=== PATIENT | male | born 1950 | race Caucasian/White ===

== ENCOUNTER 2017-04-05 12:39 | Emergency (ER) | payer OTHER ==
[2017-04-05 12:47] VITALS: BP 131/83; PULSE 74; RESP 18; TEMP 98.1; O2SAT 95
[2017-04-05 13:46] LABS: % IMMATURE GRANULYOCYTES 0.2 % (0.0-1.1); ABSOLUTE IMMATURE GRANULOCYTES 0.01 10^3/uL (0.00-0.10); ADD DIFF? NO; ADD MORPH? NO; ADD SCAN? NO; ATYPICAL LYMPHOCYTE FLAG 10 (0-99); FRAGMENT RBC FLAG 0 (0-99); HEMATOCRIT 44.3 % (40.0-51.0); HEMOGLOBIN 16.1 g/dL (13.7-17.5); LEFT SHIFT FLG 0 (0-99); LIPEMIA HEMOLYSIS FLAG 90 (0-99); MEAN CELL HEMOGLOBIN 34.8 pg (27.9-34.1); MEAN CELL HEMOGLOBIN CONCENTR. 36.3 g/dL (32.4-36.7); MEAN CELL VOLUME 95.9 fL (81.5-99.8); MEAN PLATELET VOLUME 10.6 fL (8.7-11.7); PLATELET CLUMPS FLAG 0 (0-99); PLATELET COUNT 210 10^3/uL (150-400); RED BLOOD CELL COUNT 4.62 10^6/uL (4.40-6.38); RED CELL DISTRIBUTION WIDTH 12.3 % (11.5-15.2)
[2017-04-05 13:59] LABS: ANION GAP 14 mEq/L (8-16); CALCIUM 9.4 mg/dL (8.5-10.4); CARBON DIOXIDE 24 mEq/l (22-31); CHLORIDE 103 mEq/L (97-110); CREATININE 0.8 mg/dL (0.7-1.3); GLOMERULAR FILTRATION RATE > 60; GLUCOSE 99 mg/dL (70-100); POTASSIUM 4.1 mEq/L (3.5-5.2); SODIUM 141 mEq/L (134-144)
--- NOTE | 2017-04-05 14:16 | EDPHY ---
HPI/HX/ROS/PE/MDM Narrative: CHIEF COMPLAINT: Rectal bleeding post colonoscopy HPI: This patient is an anticoagulated (Plavix) 66 year old male arriving with his complaining of two episodes of rectal bleeding following a colonoscopy and polyp removal this morning with Dr. Del Angel. He has routine colonoscopies with polyp removal every three years. His post-procedural instructions recommended he present to the emergency department for any bleeding greater than one teaspoon, and he has noted two separate episodes with quarter-sized blood clots in the toilet which he estimated as greater than one tablespoon of blood. He denies abdominal pain, vomiting, fever, chest pain, difficulty breathing, or other associated symptoms. REVIEW OF SYSTEMS: Aside from elements discussed in the HPI, a comprehensive 10-point review of systems was reviewed and is negative. PMH: Stent placement (Plavix, Aspirin). Hyperlipidemia. Orthopedic surgeries. SOCIAL HISTORY: at bedside. Retired. Lives in [place]. PHYSICAL EXAM: General:Patient is alert, in no acute distress. ENT:Eyes are normal to inspection. ENT inspection normal. Neck: Normal inspection. Full range of motion. Respiratory:No respiratory distress. Breath sounds normal bilaterally. Cardiovascular: Regular rate and rhythm. Strong peripheral pulses. Normal cap refill. Abdomen:The abdomen is nontender to palpation. There are no peritoneal signs. There are normal bowel sounds. Back: Normal to inspection. No tenderness to palpation. Skin: Normal color. No rash. Warm and dry. Extremities: Normal appearance. Full range of motion. Neuro: Oriented x3. Normal motor function. Normal sensory function. ED Course: 66 year old male presents following two episodes of quarter-sized blood clots per rectum following colonoscopy this morning by Dr. Del Angel, cad developer. He is well-appearing and has no complaints otherwise. Exam is unremarkable, no abdominal tenderness. Plan for labs including CBC, BMP. Plan to consult with GI specialist corporate communications intern. The patient is hemodynamically stable. Labs within normal limits. Vital signs within normal limits. 14:[address] Clark, cad developer corporate communications intern. He is comfortable with outpatient followup for this patient. Reassessed patient. He continues to feel asymptomatic. Plan to discharge home in good condition. He will continue to follow his post-procedural instructions and follow up with Dr. Del Angel as directed. Strict return precautions discussed. The patient is comfortable with this plan. - Data Points Laboratory Results: Laboratory Results 04/05/17 13:10 04/05/17 13:10 04/05/17 04/05/17 13:10 13:10 WBC 6.14 10^3/uL 10^3/uL (3.80-9.50) RBC 4.62 10^6/uL 10^6/uL (4.40-6.38) Hgb 16.1 g/dL g/dL (13.7-17.5) Hct 44.3 % % (40.0-51.0) MCV 95.9 fL fL (81.5-99.8) MCH 34.8 pg H pg (27.9-34.1) MCHC 36.3 g/dL g/dL (32.4-36.7) RDW 12.3 % % (11.5-15.2) Plt Count 210 10^3/uL 10^3/uL (150-400) MPV 10.6 fL fL (8.7-11.7) Neut % (Auto) 65.2 % % (39.3-74.2) Lymph % (Auto) 23.8 % % (15.0-45.0) Rabun % (Auto) 8.8 % % (4.5-13.0) Eos % (Auto) 1.3 % % (0.6-7.6) Baso % (Auto) 0.7 % % (0.3-1.7) Nucleat RBC Rel Count 0.0 % % (0.0-0.2) Absolute Neuts (auto) 4.01 10^3/uL 10^3/uL (1.70-6.50) Absolute Lymphs (auto) 1.46 10^3/uL 10^3/uL (1.00-3.00) Absolute Monos (auto) 0.54 10^3/uL 10^3/uL (0.30-0.80) Absolute Eos (auto) 0.08 10^3/uL 10^3/uL (0.03-0.40) Absolute Basos (auto) 0.04 10^3/uL 10^3/uL (0.02-0.10) Absolute Nucleated RBC 0.00 10^3/uL 10^3/uL (0-0.01) Immature Gran % 0.2 % % (0.0-1.1) Immature Gran # 0.01 10^3/uL 10^3/uL (0.00-0.10) Sodium 141 mEq/L mEq/L (134-144) Potassium 4.1 mEq/L mEq/L (3.5-5.2) Chloride 103 mEq/L mEq/L (97-110) Carbon Dioxide 24 mEq/l mEq/l (22-31) Anion Gap 14 mEq/L mEq/L (8-16) BUN 15 mg/dL mg/dL (7-23) Creatinine 0.8 mg/dL mg/dL (0.7-1.3) Estimated GFR > 60 Glucose 99 mg/dL mg/dL (70-100) Calcium 9.4 mg/dL mg/dL (8.5-10.4) General Time Seen by Provider: 04/05/17 13:55 Initial Vital Signs: Initial Vital Signs Temperature (C) 36.7 C 04/05/17 12:45 Heart Rate 74 04/05/17 12:45 Respiratory Rate 18 04/05/17 12:45 Blood Pressure 131/83 H 04/05/17 12:45 O2 Sat (%) 95 04/05/17 12:45 O2 Delivery Mode Room Air Allergies/Adverse Reactions: No Known Allergies Allergy (Verified 04/05/17 12:44) Home Medications: Medication Instructions Recorded ATENOLOL 05/14/09 Lisinopril 05/14/09 Plavix 05/14/09 Vytorin 05/14/09 Ativan 03/04/11 Departure - Departure Disposition: Home, Routine, Self-Care Clinical Impression: Rectal bleeding Condition: Good Instructions: Rectal Bleeding (ED) Additional Instructions: 1. Continue to follow your post-procedural instructions. 2. Follow up with Dr. Del Angel as scheduled. 3. Return to the emergency department for increased bleeding or if you develop abdominal pain or other worsening of condition. Referrals: Drew Arnett MD [Primary Care Provider] - As per Instructions Henrry Del Angel MD [Medical Doctor] - As per Instructions Report Scribed for: Rogers Campa Report Scribed by: Melissa Javier Date of Report: 04/05/17 Time of Report: 14:14 Physician Review and Approval Statement: Portions of this note were transcribed by an ED scribe. I personally performed the history, physical exam, and medical decision making; and confirm the accuracy of the information in the transcribed note.
== END 2017-04-05 14:43 | disposition home or self-care (01) ==
DX: K62.5 Hemorrhage of anus and rectum (principal); Z79.01 Long term (current) use of anticoagulants

== ENCOUNTER 2018-09-04 18:32 | Emergency (ER) | payer OTHER ==
[2018-09-04 18:41] VITALS: BP 117/79
[2018-09-04] MEDS ORDERED: PROPARACAINE 0.5% 15 ML OPHT DROP ONE (18:42)
[2018-09-04] MEDS ORDERED: FLUORESCEIN SODIUM 1 MG STRIP OP ONE (18:42)
--- NOTE | 2018-09-04 18:55 | EDPHY ---
H & P Time Seen by Provider: 09/04/18 18:40 HPI/ROS: CHIEF COMPLAINT: Right eye pain HISTORY OF PRESENT ILLNESS: 68-year-old male presents with right eye pain. He was trimming his lawn when something flew up and got into his right eye. Immediate onset of moderate pain in the right eye. Pain has gradually worsened over the last few hours and is moderate. Associated with excessive tearing. No change in vision. Smoking Status: Never smoked Physical Exam: Visual Acuity: noted from Nurse's notes. Lids: no proptosis, no periorbital erythema or swelling, no vesicles Conjunctivae: erythema, no discharge Pupils:equal round and reactive to light EOMI Cornea: Fluorescein uptake in the 6 o'clock position, no FB Anterior chamber:Clear, no hyphema Constitutional: Initial Vital Signs Temperature (C) 36.8 C 09/04/18 18:38 Heart Rate 79 09/04/18 18:38 Respiratory Rate 16 09/04/18 18:38 Blood Pressure 117/79 09/04/18 18:38 O2 Sat (%) 92 09/04/18 18:38 O2 Delivery Mode Room Air Allergies/Adverse Reactions: No Known Allergies Allergy (Verified 09/04/18 18:38) Home Medications: Medication Instructions Recorded ATENOLOL 05/14/09 Lisinopril 05/14/09 Vytorin 05/14/09 Ativan 03/04/11 Ofloxacin 0.3% [Ocuflox 0.3% (RX)] 2 drops RTEYE Q6 #1 opht.btl 09/04/18 Medical Decision Making Procedures: Flourescein/alcaine exam, corneal abrasion present, no FB. Differential Diagnosis: Differential diagnosis includes hyphema, acute iritis, traumatic mydriasis, corneal abrasion, globe rupture. Departure - Departure Disposition: Home, Routine, Self-Care Clinical Impression: Corneal abrasion, right Condition: Good Instructions: Corneal Abrasion (ED) Additional Instructions: Ibuprofen 600mg every 6 hours as needed for pain. Referrals: eVrn Fraser MD [Medical Doctor] - 1 day, if not improved (Followup with Dr. Fraser if you still have pain in 24 hours. ) Prescriptions: Ofloxacin 0.3% [Ocuflox 0.3% (RX)] 2 drops RTEYE Q6 #1 opht.btl
== END 2018-09-04 19:00 | disposition home or self-care (01) ==
DX: S05.01XA Injury of conjunctiva and corneal abrasion without foreign body, right eye, initial encounter (principal); Y92.007 Garden or yard of unspecified non-institutional (private) residence as the place of occurrence of the external cause; Y93.H2 Activity, gardening and landscaping